=== PATIENT | female | born 1935 | race Caucasian/White ===

== ENCOUNTER → 2017-12-21 | Outpatient (CLI) | payer OTHER ==
[~2017-12-21] MED LIST: AMIO200 PO; ASPI81CH PO; ASPI81EC PO; ATEN25 PO; BENICAR; CHOL10002 PO; CRESTOR; DULO60 PO; ERGO400 PO; FURO20 PO; Iron Supplemen325 MG PO; LEVSOD50 PO; LOSA50 PO; METF500 PO; NEBI10 PO; NEBI5 PO; NIFE30ER PO; OMEP20ER PO; POTCHL10ER PO; Prilosec Otc20 MG PO; WARF2.5 PO; WARF5; WARF5 PO
== END | disposition home or self-care (01) ==
LOC: LAB SHORT 08:17 → PLD 08:17
DX: D04.4 Carcinoma in situ of skin of scalp and neck (principal)
CPT/HCPCS: 88305

== ENCOUNTER 2019-08-28 16:12 | Emergency (ER) | payer OTHER ==
[~2019-08-28] VITALS: Ht 152.4 cm; Wt 82.5 kg
[2019-08-28 17:18] LABS: BASOPHILS ABSOLUTE AUTO 0.04 K/mm3 (0.00-0.23); BASOPHILS PERCENT AUTO 1 % (0-2); EOSINOPHILS ABSOLUTE AUTO 0.15 K/mm3 (0.00-0.68); EOSINOPHILS PERCENT AUTO 2 % (0-6); Hematocrit 36.3 % (33.0-51.0); Hemoglobin 11.4 g/dL (11.5-16.0); IMMATURE GRAN ABSOLUTE AUTO 0.02 K/mm3 (0.00-0.10); IMMATURE GRAN PERCENT AUTO 0 % (0-1); LYMPHOCYTES PERCENT AUTO 18 % (21-46); MONOCYTES ABSOLUTE AUTO 0.56 K/mm3 (0.16-1.47); MONOCYTES PERCENT AUTO 9 % (4-13); Mean Corpuscular HGB 30.2 pg (26.0-34.0); Mean Corpuscular HGB Conc 31.4 g/dL (31.5-36.5); Mean Corpuscular Volume 96 fL (80-100); Mean Platelet Volume 10.6 fL (9.1-12.4); NEUTROPHILS ABSOLUTE AUTO 4.57 K/mm3 (1.96-9.15); NEUTROPHILS PERCENT AUTO 70 % (41-73); Platelet Count 207 K/mm3 (150-400); RDW Coefficient Variation 13.5 % (11.7-14.2); RDW Standard Deviation 48.6 fL (35.1-46.3); Red Blood Cell Count 3.77 M/mm3 (3.80-5.20); White Blood Cell Count 6.54 K/mm3 (4.00-11.30)
[2019-08-28 17:36] LABS: Alanine Aminotransfer (ALT/SGP 23 U/L (12-78); Albumin, Blood 3.2 g/dL (3.4-5.0); Albumin/Globulin Ratio 0.9 (0.8-1.8); Alk Phos 83 U/L (50-136); Anion Gap 7 mmol/L (6-16); Aspartate Aminotrans (AST/SGOT 20 U/L (12-37); Bilirubin, Total 0.6 mg/dL (0.1-1.0); Blood Urea Nitrogen 32 mg/dL (8-24); CO2, Blood 25 mmol/L (21-32); Chloride, Blood 104 mmol/L (98-108); Creatinine, Blood 0.91 mg/dL (0.40-1.00); Globulin, Blood 3.6 g/dL (2.2-4.0); Glomerular Filtration Rate >60 (60-); Glucose, Blood 118 mg/dL (70-99); Potassium, Blood 4.6 mmol/L (3.5-5.5); Sodium, Blood 136 mmol/L (136-145); Total Protein, Blood 6.8 g/dL (6.4-8.2)
[2019-08-28 17:40] LABS: International Normalized Ratio 0.94
== END 2019-08-28 17:30 | disposition home or self-care (01) ==
LOC: ER 16:12
PROVIDERS: Physician Assistant
DX: H53.8 Other visual disturbances (principal); E11.9 Type 2 diabetes mellitus without complications; I25.2 Old myocardial infarction; Z79.899 Other long term (current) drug therapy; Z79.84 Long term (current) use of oral hypoglycemic drugs; Z79.01 Long term (current) use of anticoagulants; Z79.82 Long term (current) use of aspirin
CPT/HCPCS: 36415; 70450; 80053; 82947; 85025; 85610; 93005; 93010; 99285-25

== ENCOUNTER → 2020-11-06 | Outpatient (CLI) | payer OTHER ==
[~2020-11-06] MED LIST changes: +AMLODIPINE BES2.5 MG PO; -ASPI81CH PO; +Aspir 8181 MG PO; +CLON.1 PO; +CYMBALTA30 M2 PO; +DULOXETINE HCL60 M1 PO; +ELIQUIS5 M2 PO; +FERSU300 PO; +FUROSEMIDE20 MG PO; +K-Dur10 MEQ PO; +LOSARTAN POTAS100 M1 PO; +Lovastatin10 MG PO; +MIRALAX17 GM PO; +PREGABALIN75 MG PO; +SYNTHROID50 MC1 PO; +VITAMIN D31000 UNI1 PO
== END | disposition home or self-care (01) ==
LOC: LAB SHORT 09:00 → LAB 09:00
DX: Z48.89 Encounter for other specified surgical aftercare (principal)
CPT/HCPCS: 87070; 87075; 87205

== ENCOUNTER → 2020-11-30 | Outpatient (CLI) | payer OTHER | END | disposition home or self-care (01) | LOC: LAB SHORT 09:07 → PLD 09:07 | DX: Z47.81 Encounter for orthopedic aftercare following surgical amputation (principal); Z89.421 Acquired absence of other right toe(s) | CPT/HCPCS: 88305; 88311; 89060 ==

== ENCOUNTER 2021-05-04 10:29 | Inpatient (IN) | payer OTHER, MEDICARE ==
[~2021-05-04] VITALS: Ht 167.6 cm; Wt 84.8 kg
[~2021-05-04 10:29] MED LIST changes: -AMLODIPINE BES2.5 MG PO; -CLON.1 PO; -CYMBALTA30 M2 PO; -DULOXETINE HCL60 M1 PO; -ELIQUIS5 M2 PO; -FERSU300 PO; -FUROSEMIDE20 MG PO; -K-Dur10 MEQ PO; -LOSARTAN POTAS100 M1 PO; -Lovastatin10 MG PO; -MIRALAX17 GM PO; -PREGABALIN75 MG PO; -SYNTHROID50 MC1 PO; -VITAMIN D31000 UNI1 PO
[2021-05-04] MEDS ORDERED: ELIQUIS5 M2 PO (10:51)
[2021-05-04 11:20] LABS: Source, Urine Catheter
[2021-05-04 11:27] LABS: Bilirubin, Urine Neg (Neg); Blood, Urine Neg (Neg); Glucose Qualitative, Urine Neg (Neg); Ketones, Urine Neg (Neg); Leukocyte Esterase, Urine Neg (Neg); Nitrite, Urine Neg (Neg); Protein, Urine Neg (Neg); Specific Gravity, Urine 1.015 (1.003-1.022); Urobilinogen, Urine NORM (Normal)
[2021-05-04 11:33] LABS: BASOPHILS ABSOLUTE AUTO 0.01 K/mm3 (0.00-0.23); BASOPHILS PERCENT AUTO 0 % (0-2); EOSINOPHILS ABSOLUTE AUTO 0.02 K/mm3 (0.00-0.68); EOSINOPHILS PERCENT AUTO 0 % (0-6); IMMATURE GRAN ABSOLUTE AUTO 0.08 K/mm3 (0.00-0.10); IMMATURE GRAN PERCENT AUTO 1 % (0-1); LYMPHOCYTES ABSOLUTE AUTO 0.69 K/mm3 (0.84-5.20); LYMPHOCYTES PERCENT AUTO 9 % (21-46); MONOCYTES ABSOLUTE AUTO 0.54 K/mm3 (0.16-1.47); MONOCYTES PERCENT AUTO 7 % (4-13); Mean Corpuscular HGB Conc 26.8 g/dL (31.5-36.5); Mean Corpuscular Volume 120 fL (80-100); Mean Platelet Volume 11.5 fL (9.1-12.4); NEUTROPHILS ABSOLUTE AUTO 6.45 K/mm3 (1.96-9.15); NEUTROPHILS PERCENT AUTO 83 % (41-73); NRBC ABSOLUTE 0.08 K/mm3 (0.00-0.02); Platelet Count 206 K/mm3 (150-400); RDW Coefficient Variation 22.5 % (11.7-14.2); RDW Standard Deviation 92.3 fL (35.1-46.3); Red Blood Cell Count 1.28 M/mm3 (3.80-5.20); White Blood Cell Count 7.79 K/mm3 (4.00-11.30)
[2021-05-04 11:38] LABS: Hemoglobin 4.1 g/dL (11.5-16.0)
[2021-05-04 11:39] LABS: Hematocrit 15.3 % (33.0-51.0)
[2021-05-04 11:51] LABS: Albumin, Blood 2.5 g/dL (3.4-5.0); Albumin/Globulin Ratio 0.9 (0.8-1.8); Bilirubin, Total 0.4 mg/dL (0.1-1.0); Bun/Creatinine Ratio 41.9 (12.0-20.0); Calcium, Blood 8.2 mg/dL (8.5-10.1); Creatinine, Blood 1.29 mg/dL (0.40-1.00); Globulin, Blood 2.8 g/dL (2.2-4.0); Magnesium, Blood 2.3 mg/dL (1.6-2.4); Potassium, Blood 4.1 mmol/L (3.5-5.5); Total Protein, Blood 5.3 g/dL (6.4-8.2); Troponin I 0.047 ng/mL (0.000-0.040)
[2021-05-04 12:10] LABS: Appearance, Urine Clear (Clear); Color, Urine Yellow (P-Yellow)
[2021-05-04] MEDS ORDERED: PREGABALIN75 MG PO (14:32)
[2021-05-04] MEDS ORDERED: AMLODIPINE BES2.5 MG PO (14:32)
[2021-05-04] MEDS ORDERED: CYMBALTA30 M2 PO (14:33)
[2021-05-04] MEDS ORDERED: DULOXETINE HCL60 M1 PO (14:33)
[2021-05-04] MEDS ORDERED: Lovastatin10 MG PO (14:33)
[2021-05-04] MEDS ORDERED: SYNTHROID50 MC1 PO (14:34)
[2021-05-04] MEDS ORDERED: LOSARTAN POTAS100 M1 PO (14:34)
[2021-05-04] MEDS ORDERED: K-Dur10 MEQ PO (14:34)
[2021-05-04] MEDS ORDERED: CLON.1 PO (14:34)
[2021-05-04] MEDS ORDERED: OMEP20ER PO (14:35)
[2021-05-04] MEDS ORDERED: FUROSEMIDE20 MG PO (14:35)
[2021-05-04] MEDS ORDERED: VITAMIN D31000 UNI1 PO (14:36)
[2021-05-04] MEDS ORDERED: FERSU300 PO (14:36)
--- NOTE | 2021-05-04 15:39 | NUR ---
Spoke with Dr Rodgers and discussed case. Pt and daughter may benefit from discussion regarding goals of care. Joint visit with Dr Rodgers, Dr Ortega, Dr Rivera, and this RN. Pt agreeable to be admitted to the hospital and have GI consult. Pt is a [employer] and does not agree to blood transfusion. Pt is willing to have CPR for now but would like to discuss it further with family. Pt to be admitted to the hospital. Palliative Care will F/U with Pt and family once admitted to the floor.
[2021-05-04 15:46] LABS: International Normalized Ratio 1.11; Prothrombin Time Results 11.9 Sec (9.7-11.5)
--- NOTE | 2021-05-04 17:00 | NUR ---
History, Chart, Medications and Allergies reviewed before start of procedure.Lungs clear T/O to Auscultation. Patient confirms NPO status and agrees with scheduled surgery.
--- NOTE | 2021-05-04 17:09 | NUR ---
05/04/21 1709 KISHA EDGAR History, Chart, Medications and Allergies reviewed before start of procedure. 3-LEAD EKG REVIEWED WITH PHYSICIAN PRIOR TO START OF PROCEDURE. O2 VIA POM INTACT THROUGHOUT SEDATION/PROCEDURE. MONITOR INTACT WITH CONTINUOUS PULSE OXIMETRY AND INTERMITTENT BP. MAC WITH DR. PIERSON.
--- NOTE | 2021-05-04 17:49 | NUR ---
ARRIVAL TO UNIT PT ARRIVED TO UNIT FROM PACU AT 1740. SHE IS [id number], ANSWERS APPROPRIATLY. SHE REPORTS FEELING A LITTLE WEAK. SHE IS ON 3L NC AND DENIES SOB. ABLE TO HELP WITH REPOSITIONING AND ROLLING WELL. SHE IS PALE ON ARRIVAL. PT IS ASKING FOR FOOD AND DRINK, DAUGHTER AT BEDSIDE WILL GET FOOD FOR PT PER HER REQUEST.
--- NOTE | 2021-05-05 04:16 | NUR ---
SHIFT SUMMARY: PT S/P EGD PROCEDURE. A&O X4 IN BEGINNING OF SHIFT BUT APPEARS TO BE MORE FORGETFUL. HOLLERING OUT FOR HER DAUGHTER JAMIL THIS MORNING. PT REORIENTING EASILY. PT APPEARS VERY PALE. THREADY PULSES THROUGHOUT. PT PULLED OUT IV THIS AM. NEW ONE PLACED TO RIGHT FOREARM. IVF INFUSING PER EMAR. INCONTINENT AND VOIDING IN ATTENDS. HR 115 THIS MORNING. HX A/FIB. BP STABLE.
[2021-05-05] MEDS ORDERED: NEBI10 PO (11:39)
[2021-05-05] MEDS ORDERED: MIRALAX17 GM PO (11:41)
--- NOTE | 2021-05-05 11:48 | NUR ---
Pt resting in bed with her eyes closed upon arrival. Dr Ortega at bedside discussing with family options for care including the option for hospice. This RN educated on the hospice philosophy with V/U made by family. Listened as family reports Pt is wanting to go home and Pt quality of life has significantly diminished over the last several months. Pt has been indicating to family wanting to focus on comfort. Pt spends the majority of her waking hours in bed or a chair. Pt requires assistance with transfers, at baseline able to ambulate with FWW but recently Pt has not been able to ambulate. Pt requires assistance with bathing, dressing, and experiences occasional incontinence. Continued therapeutic listening and answered questions. Discussed hospice agencies to choose from, with family choosing [facility]. Family will complete POLST with Pt when she wakes. Pt has indicated to family and Dr Ortega that she would not want CPR or Intubation. Spoke with Pt's primary RN and discussed case. Sp[facility] with [facility] and discussed case. PPS 40% ADLs 5/6 Changed code status to DNR per V/O from Dr Ortega. Palliative Care will remain available.
--- NOTE | 2021-05-05 14:47 | NUR ---
DISCHARGE NOTE: PATIENT AND FAMILY MEMBERS WERE EDUCATED ON DISCHARGE INSTRUCTIONS. FAMILY MEMBERS VERBALIZED UNDERSTANDING OF INSTRUCTIONS. THEY HAVE NO FURTHER QUESTIONS AT THIS TIME. PATIENT IS SLEEPY BUT IS AROUSABLE WITH TOUCH AND VERBAL STIMULI. IV WAS TAKEN OUT AND WAS WNL. PATIENTS SKIN IS PALE BUT WARM TO TOUCH. PATIENT HAS HER ATTENDS CHANGED AT THIS TIME. PATIENT DENIES PAIN AT THIS TIME. FAMILY MEMBERS AT BEDSIDE. SHE WILL BE TRANSFERRED THROUGH [facility] ON A GURNEY AT AROUND 1515 TO HOME WITH HOSPICE. ITEMS IN THE ROOM ARE GATHERED.
== END 2021-05-05 15:30 | disposition hospice, home (50) | DRG 379 ==
LOC: ER 10:29 → SURS 16:02 → ICUW 16:02 → SURS 16:15
PROVIDERS: Emergency Medicine; Student in an Organized Health Care Education/Training Program; ADMIT Internal Medicine
PROC: 0DJ08ZZ Inspection of Upper Intestinal Tract, Via Natural or Artificial Opening Endoscopic (ICD-10-PCS; principal; 2021-05-04 14:30)
DX: K92.1 Melena (principal); J44.9 Chronic obstructive pulmonary disease, unspecified; K44.9 Diaphragmatic hernia without obstruction or gangrene; Z66 Do not resuscitate; Z88.5 Allergy status to narcotic agent; Z88.2 Allergy status to sulfonamides; E11.22 Type 2 diabetes mellitus with diabetic chronic kidney disease; I48.91 Unspecified atrial fibrillation; M79.7 Fibromyalgia; E03.9 Hypothyroidism, unspecified; I25.2 Old myocardial infarction; Z95.1 Presence of aortocoronary bypass graft; Z90.49 Acquired absence of other specified parts of digestive tract; Z98.890 Other specified postprocedural states; Z90.710 Acquired absence of both cervix and uterus; Z95.0 Presence of cardiac pacemaker; I25.10 Atherosclerotic heart disease of native coronary artery without angina pectoris; Z86.711 Personal history of pulmonary embolism; N18.30 Chronic kidney disease, stage 3 unspecified; D64.9 Anemia, unspecified
CPT/HCPCS: 36415; 51701; 70450; 71045; 80053; 81003; 82272; 82947; 83010; 83615; 83735; 83880; 84443; 84484; 85025; 85610; 85730; 96365-59; 96366-59; 96367-59; 96375-59; 99285-25; A9270; C9113; J2354; J2370; J2405; J2704; J2916; J7030; J7120